=== PATIENT | male | born 1990 | race Two or more races ===

== ENCOUNTER → 2018-05-18 07:33 | Outpatient (CLI) | payer OTHER, MEDICAID, SELFPAY ==
--- NOTE | 2018-05-18 07:39 | US_ITS ---
STUDY: SUPERFICIAL ULTRASOUND - RIGHT GROIN REASON FOR EXAM: Male, 28 years old. Lump in the right groin, lymph node versus hernia. TECHNIQUE: A superficial ultrasound was performed with real-time and static wilcox-scale imaging. COMPARISON: None. FINDINGS: Examination of the area of palpable concern of the right groin demonstrate a 2.1 x 1.2 x 0.7 cm, 1.9 x 1.7 x 0.6 cm, 1.1 x 1.6 x 0.4 cm and 1.3 x 1.0 x 1.0 cm hypoechoic nodule with echogenic hilum, consistent with enlarged lymph nodes. US/Ext Non Vasc Limited/Soft Tiss IMPRESSION: Multiple right inguinal borderline enlarged lymph nodes. Electronically Signed: Melanie Wick MD at 10:15 EDT Tel , Service support ,
== END ==
PROVIDERS: Family Provider Family Medicine; PCP Family Medicine; Visit Provider Nurse Practitioner Family
DX: R19.09 Other intra-abdominal and pelvic swelling, mass and lump (principal)
CPT/HCPCS: 76882